=== PATIENT | male | born 1975 | race Caucasian/White ===

== ENCOUNTER 2019-12-06 13:40 | Emergency (ER) | payer BC ==
[~2019-12-06] VITALS: Ht 180.3 cm; Wt 122.5 kg
[2019-12-06 13:40] VITALS: BP_SYST 163
[2019-12-06] MEDS ORDERED: methylPREDNISolone SOD SUCC/PF 62.5 MG/ML VIAL IM ONE (14:00)
[2019-12-06 14:23] VITALS: BP_SYST 112
== END 2019-12-06 14:36 | disposition home or self-care (01) ==
LOC: SED 13:40
DX: G51.0 Bell's palsy (principal)
CPT/HCPCS: 96372; 99283; J2930